=== PATIENT | female | born 1955 ===

== ENCOUNTER 2017-12-19 08:48 | Day surgery (SDC) | payer BC ==
[2017-12-19] VITALS (9 sets, daily range): BP systolic 110–131; BP diastolic 73–79
[~2017-12-19] VITALS: Ht 152.4 cm; Wt 77.1 kg
[2017-12-19] MEDS ORDERED: ASPIR-LOW81 MG ORAL (09:21)
[2017-12-19] MEDS ORDERED: PROPRANOLOL HCL40 MG ORAL (09:21)
--- NOTE | 2017-12-19 09:57 | Pre-Procedure Note/Attestation ---
Pre-Procedure Note/Attestation Complete Prior to Procedure Planned Procedure: not applicable Procedure Narrative: colonoscopy Indications for Procedure Pre-Operative Diagnosis: screening Attestation I attest that I discussed the nature of the procedure; its benefits; risks and complications; and alternatives (and the risks and benefits of such alternatives ), prior to the procedure, with the patient (or the patient's legal client representative). I attest that, if there was a reasonable possibility of needing a blood transfusion, the patient (or the patient's legal client representative) was given the [facility] standardized written summary, pursuant to the [place] Blood Safety Act ([place] Health and Safety Code # 1645, as amended). I attest that I re-evaluated the patient just prior to the surgery and that there has been no change in the patient's H&P, except as documented below: Soto eDxter MD Dec 19, 2017 09:57
--- NOTE | 2017-12-19 09:59 | Short Stay Surgery H&P ---
History of Present Illness History of Present Illness Chief Complaint screening colon HPI Sidra Guerra is a 62 year old female who was admitted on for Colon Screening Patient History Allergies: Coded Allergies: No Known Allergies (Unverified , 12/18/17) PAST MEDICAL HISTORY: (1) Anxiety (2) Arthritis Medication History Scheduled Aspirin* (Aspir-Low*), 81 MG ORAL DAILY, (Reported) Propranolol Hcl* (Inderal*), 40 MG ORAL THREE TIMES A DAY, (Reported) Review of Systems Cardiovascular: Reports: no symptoms Respiratory: Reports: no symptoms Skeletal: Reports: no symptoms Gastrointestinal: Reports: no symptoms Genitourinary: Reports: no symptoms Neurologic: Reports: no symptoms Endocrine: Reports: no symptoms Hematologic: Reports: no symptoms Physical Exam Vital Signs Last Vital Signs Date Time Temp Pulse Resp B/P (MAP) Pulse Ox O2 Delivery O2 Flow Rate FiO2 12/19/17 09:28 98.4 62 20 119/76 (90) 96 98.4 12/19/17 09:22 Room Air Skin: normal HENT: normal Heart: normal Lungs: normal Abdomen: normal Extremities: normal Plan Plan of Care colonoscopy Attestation Are the patient's medical conditions optimized for surgery? Attestation Response: yes Soto Dexter MD Dec 19, 2017 09:59
[2017-12-19] MEDS ORDERED: Propofol 200mg/20ml IV ONE (10:00)
[2017-12-19] MEDS ORDERED: Lidocaine 1% MPF 10mg/ml 5ml ONE (10:00)
[2017-12-19] MEDS ORDERED: LR 1000ml ONE (10:00)
--- NOTE | 2017-12-19 10:18 | Endoscopy Procedure Note ---
Endoscopy Procedure Note General Indication for Procedure: screening Procedures Performed: colonoscopy Operative Findings/Diagnosis: one colon polyp Specimen: yes Pt Tolerated Procedure Well: Yes Estimated Blood Loss: none Anesthesia Anesthesiologist: see chart Anesthesia: MAC Inserted Devices Implant(s) used?: No Quality Quality of Bowel Preparation: Excellent Did scope reach the cecum?: Yes Was there any complications?: No GI Core Measures 50 yrs or older w/o bx or poly: No 10yrs. F/U not recommended: Yes If not recommended, why?: Above average risk 10 yrs. F/U needed: Yes 18 years or older w/prev. colo: No Soto Dexter MD Dec 19, 2017 10:18
--- NOTE | 2017-12-19 10:24 | Anethesia Preoperative Eval ---
Anesthesia Pre-op PMH/ROS General Date of Evaluation: Dec 19, 2017 Time of Evaluation: 09:46 Anesthesiologist: Gayatri Matthew CRNA ASA Score: ASA 2 Mallampati Score Class I : Soft palate, uvula, fauces, pillars visible Class II: Soft palate, uvula, fauces visible Class III: Soft palate, base of uvula visible Class IV: Only hard plate visible Mallampati Classification: Class II Surgeon: Isacc Diagnosis: Colon screening Surgical Procedure: Colonoscopy Anesthesia History: none Allergies: Coded Allergies: No Known Allergies (Unverified , 12/18/17) Past Medical History Cardiovascular: Denies: HTN, CAD, SC, valve dz, arrhythmia, other Pulmonary: Denies: asthma, COPD, TAMAR, other Gastrointestinal/Genitourinary: Denies: GERD, CRI, ESRD, other Neurologic/Psychiatric: Reports: dementia, CVA, depression/anxiety, TIA, other - Headaches Endocrine: Denies: DM, hypothyroidism, steroids, other HEENT: Denies: cataract (L), cataract (R), glaucoma, [place] (L), [place] (R), other Hematology/Immune: Denies: anemia, DVT, bleeding disorder, other Musculoskeletal/Integumentary: Denies: OA, RA, DJD, DDD, edema, other Anesthesia Pre-op Phys. Exam Physician Exam Last Vital Signs Date Time Temp Pulse Resp B/P (MAP) Pulse Ox O2 Delivery O2 Flow Rate FiO2 12/19/17 09:28 98.4 62 20 119/76 (90) 96 98.4 12/19/17 09:22 Room Air Constitutional: NAD Neurologic: CN 2-12 intact Cardiovascular: RRR Respiratory: CTA Gastrointestinal: S/NT/ND Airway Exam Mallampati Score: Class II MO: full ROM: full Teeth: intact Dentures: no upper, no lower Anesthesia Pre-op A/P Studies Pre-op Studies: EKG - NSR Risk Assessment & Plan Plan: MAC Status Change Before Surgery: Gayatri Graham CRNA Dec 19, 2017 10:24
--- NOTE | 2017-12-19 10:26 | Immediate Post-Op Evaluation ---
Immediate Post-Op Evalulation Immediate Post-Op Evalulation Procedure: Colonoscopy Date of Evaluation: Dec 19, 2017 Time of Evaluation: 10:16 IV Fluids: LR 300ml Blood Pressure Systolic: 110 Blood Pressure Diastolic: 73 Pulse Rate: 55 Respiratory Rate: 26 O2 Sat by Pulse Oximetry: 100 Temperature (Fahrenheit): 97.2 Pain Score (1-10): 0 Nausea: No Vomiting: No Complications none Patient Status: reacts, patent Hydration Status: adequate Gayatri Matthew CRNA Dec 19, 2017 10:26
--- NOTE | 2017-12-19 12:16 | Procedure Note ---
DATE OF PROCEDURE: 12/19/2017 SURGEON: Soto Dexter M.D. REFERRING PHYSICIAN: Soto Aj M.D. PROCEDURE: Colonoscopy with biopsy. ANESTHESIA: Per anesthesiologist sheet. Please see Anesthesia sheet. INSTRUMENT: Olympus adult flexible . INDICATION: Screening colonoscopy. The procedure, risks, benefits, and possible consequences, including hemorrhage, aspiration, perforation and infection, and alternative treatments, were explained to the patient/legal guardian by Dr. Soto Dexter and the patient/legal guardian understood and accepted these risks. DESCRIPTION OF PROCEDURE: After informed consent was obtained and the patient was adequately sedated, first rectal exam was performed which showed positive for internal hemorrhoids. Then, the scope was advanced from rectum to the cecum documented by appendiceal orifice, ileocecal valve, and right upper quadrant palpation. Quality of prep was very good. The patient had one diminutive polyp in the cecum, removed with the cold biopsy forceps technique, otherwise the rest of colonoscopy examination grossly looked within normal limits. Retroflexion of rectum showed evidence of small medium internal hemorrhoids. The patient tolerated the procedure without any problem. SUMMARY OF FINDINGS: 1. One cecum polyp diminutive, status post removal. 2. Internal hemorrhoids. RECOMMENDATIONS: Follow up biopsy results and treat accordingly. We recommend repeat colonoscopy in 5 years. I want to thank Dr. Soto Aj for this kind referral. Soto Dexter M.D. DR: Genet JOB#: [id number] CC: Soto Aj M.D.
--- NOTE | 2017-12-19 12:38 | 48 Hour Post Anesthesia Eval ---
Post Anesthesia Evaluation Procedure: Colonoscopy Date of Evaluation: Dec 19, 2017 Time of Evaluation: 12:37 Blood Pressure Systolic: 125 0: 77 Pulse Rate: 56 Respiratory Rate: 18 Temperature (Fahrenheit): 97.4 O2 Sat by Pulse Oximetry: 98 Airway: patent Nausea: No Vomiting: No Pain Intensity: 0 Hydration Status: adequate Cardiopulmonary Status: Stable Mental Status/LOC: patient returned to baseline Follow-up Care/Observations: none Post-Anesthesia Complications: none Follow-up care needed: ready to discharge Gayatri Matthew CRNA Dec 19, 2017 12:38
== END 2017-12-19 12:45 | disposition home or self-care (01) ==
LOC: GAS 08:48
DX: Z12.11 Encounter for screening for malignant neoplasm of colon (principal); K63.5 Polyp of colon; K64.8 Other hemorrhoids; F41.9 Anxiety disorder, unspecified; M19.90 Unspecified osteoarthritis, unspecified site; F03.90 Unspecified dementia, unspecified severity, without behavioral disturbance, psychotic disturbance, mood disturbance, and anxiety; F32.9 Major depressive disorder, single episode, unspecified; Z86.73 Personal history of transient ischemic attack (TIA), and cerebral infarction without residual deficits
CPT/HCPCS: 45380; 93005; J2704; J7120; 94003; 94150